=== PATIENT | male | born 1945 | race African-American/Black ===

== ENCOUNTER 2025-04-16 13:08 | Inpatient (IN) | payer BC, OTHER ==
[~2025-04-16] VITALS: Ht 165.1 cm; Wt 63.5 kg
[2025-04-16] MEDS ORDERED: TENOFOVIR PO (13:14)
[2025-04-16] MEDS ORDERED: LIPITOR PO (13:14)
[2025-04-16] MEDS ORDERED: COZAAR (13:14)
[2025-04-16] MEDS ORDERED: ALDACTONE (13:14)
[2025-04-16] MEDS ORDERED: TENORMIN (13:14)
[2025-04-16] MEDS ORDERED: FLOMAX PO (13:14)
[2025-04-16] MEDS ORDERED: ALDACTAZIDE (13:15)
[2025-04-16 13:41] LABS: BASOPHILS # (AUTO) 0.1 K/UL (0.0-0.2); BASOPHILS % (AUTO) 0.7 % (0.0-2.0); EOSINOPHILS # (AUTO) 0.3 K/uL (0.0-0.7); HEMATOCRIT 23.2 % (36.7-47.1); HEMOGLOBIN 7.7 g/dL (12.5-16.3); LYMPHOCYTES # (AUTO) 1.1 K/uL (0.8-4.8); LYMPHOCYTES % (AUTO) 8.5 % (20.5-51.5); MEAN CORPUSCULAR HGB CONC 33 g/dL (32.5-36.3); MONOCYTES # (AUTO) 1.2 K/uL (0.1-1.30); MONOCYTES % (AUTO) 9.5 % (0.0-11.0); NEUTROPHILS # (AUTO) 9.9 K/uL (1.8-8.9); NEUTROPHILS % (AUTO) 79.3 % (38.5-71.5); PLATELET COUNT (AUTO) 125 K/uL (152-348); RED CELL DISTRIBUTION WIDTH 16.9 % (12.1-16.2); WHITE BLOOD COUNT (AUTO) 12.5 K/uL (3.6-10.2)
[2025-04-16] MEDS ORDERED: hydrALAZINE HCL 20 MG/1 ML VIAL IV PRN (13:45)
[2025-04-16] MEDS ORDERED: ONDANSETRON 4 MG/2 ML VIAL IV PRN (13:45)
[2025-04-16] MEDS ORDERED: ACETAMINOPHEN 325 MG TABLET PO PRN (13:45)
[2025-04-16] MEDS ORDERED: MORPHINE SULFATE 2 MG/1 ML DISP.SYRIN IVP PRN (13:45)
[2025-04-16 13:47] LABS: RED BLOOD CELL COUNT(AUTO) 2.18 MIL/uL (4.06-5.63)
[2025-04-16 13:48] LABS: DIFFERENTIAL COMMENT 1
[2025-04-16 13:50] LABS: CALCIUM 9.3 mg/dL (8.5-10.1); CARBON DIOXIDE 21 mmol/L (21-32); CHLORIDE 103 mmol/L (98-107); CREATININE 1.9 mg/dL (0.6-1.3); GLUCOSE 135 mg/dL (74-106); POTASSIUM 5.1 mmol/L (3.5-5.1); SODIUM SERUM 132 mmol/L (136-145)
[2025-04-16] MEDS: IV NORMAL SALINE 1000 ML BAG IV ONE ×2 (13:54→15:15)
[2025-04-16 13:55] LABS: UREA NITROGEN, BLOOD 81 mg/dL (7-18)
[2025-04-16 13:56] LABS: ALANINE AMINOTRANSFERASE 99 U/L (16-63); ALKALINE PHOSPHATASE 456 U/L (50-136); ASPARTATE AMINOTRANSFERASE 208 U/L (15-37); BILIRUBIN,DIRECT 3.6 mg/dL (0.0-0.2); BILIRUBIN,TOTAL 4.2 mg/dL (0.2-1.0); TOTAL PROTEIN, SERUM 5.2 g/dL (6.4-8.2)
[2025-04-16 14:16] LABS: ALBUMIN 1.2 g/dL (3.4-5.0)
[2025-04-16] MEDS ORDERED: MIDODRINE HCL 5 MG TABLET ONE (14:24)
[2025-04-16] MEDS: MIDODRINE HCL 5 MG TABLET PO SCH ×2 (14:29→18:57)
[2025-04-16 14:41] LABS: *BLOOD, URINE NEGATIVE (NEGATIVE); *CLARITY,URINE CLEAR (CLEAR); *COLOR,URINE YELLOW (YELLOW); *KETONES,URINE NEGATIVE (NEGATIVE); *PROTEIN,URINE NEGATIVE (NEGATIVE); *UROBILINOGEN,URINE 0.2 E.U./dl (NORMAL); LEUKOCYTE ESTERASE ,URINE NEGATIVE (NEGATIVE); NITRITE, URINE NEGATIVE (NEGATIVE); UGLUCOSE NEGATIVE (NEGATIVE)
[2025-04-16] MEDS ORDERED: PIPERACILLIN/TAZOBACTAM/D5W 50 ML IV ONE (14:54)
[2025-04-16 14:56] LABS: *BILIRUBIN,URIN 1+ (NEGATIVE)
[2025-04-16] MEDS: PIPERACILLIN SODIUM/TAZOBACTAM 3.375 G in IV DEXTROSE 5% 50 ML IV ONE (15:01)
[2025-04-16 15:05] LABS: LACTIC ACID 2.8 mmol/L (0.4-2.0)
[2025-04-16 15:14] LABS: SQUAMOUS EPITHELIAL CELL,UR FEW /HPF (NONE SEEN); WBC,URINE 0-3 /HPF (0-3)
[2025-04-16 17:25] VITALS: O2SAT 95
[2025-04-16] MEDS ORDERED: ASPI81TA31 PO (17:33)
[2025-04-16] MEDS ORDERED: CHOL10005 PO (17:34)
[2025-04-16] MEDS ORDERED: ASCO500C18 PO (17:34)
[2025-04-16] MEDS ORDERED: TENO300T5 PO (17:35)
[2025-04-16] MEDS ORDERED: MAGIC MOUTHWASH PO (17:36)
[2025-04-16] MEDS ORDERED: VALA100026 PO (17:37)
[2025-04-16] MEDS ORDERED: TRIA5PAS10 TOP (17:38)
[2025-04-16] MEDS ORDERED: AMOX1TAB16 PO (17:39)
[2025-04-16] MEDS ORDERED: TAMS-3 PO (17:40)
[2025-04-16] MEDS ORDERED: ALBU8.5H8 PO (17:40)
[2025-04-16] MEDS ORDERED: ATOR40TA PO (17:41)
[2025-04-16] MEDS ORDERED: ALBUMIN HUMAN 25% 100 ML IV SCH (18:00)
[2025-04-16] MEDS ORDERED: TRIAMCINOLONE ACET 0.1% ORABAS 5 GM TUBE DT PRN ×2 (18:15→18:30)
[2025-04-16] MEDS ORDERED: HOME MED MISCELLANEOUS PO PRN (18:15)
[2025-04-16 18:26] VITALS: BP 101/39; TEMP 97.8; O2SAT 95
[2025-04-16] MEDS ORDERED: VALACYCLOVIR HCL 500 MG TABLET PO SCH (18:30)
[2025-04-16 18:57] VITALS: BP 101/39
[2025-04-16] MEDS ORDERED: ALBUTEROL SULFATE 2.5 MG/3 ML NEBU NEB PRN (20:00)
[2025-04-16] MEDS: TAMSULOSIN HCL 0.4 MG CAP.SR.24H PO SCH (21:05)
[2025-04-16] MEDS: ATORVASTATIN 40 MG TABLET PO SCH (21:05)
[2025-04-16] MEDS ORDERED: VANCOMYCIN IV 200 ML ONE (21:34)
[2025-04-16] MEDS ORDERED: ALBUMIN HUMAN 25% 100 ML ONE ×2 (21:35→22:08)
[2025-04-16] MEDS: ALBUMIN HUMAN 25% 100 ML IV SCH (21:53)
[2025-04-16] MEDS ORDERED: MEROPENEM 1 G in IV NORMAL SALINE 100 ML IV SCH (22:00)
[2025-04-16] MEDS ORDERED: CEFEPIME HCL 1 G VIAL ONE (22:06)
[2025-04-16] MEDS: CEFEPIME HCL 1 G in IV DEXTROSE 5% 50 ML IV ONE (23:27)
[2025-04-17] MEDS ORDERED: MEROPENEM 1GM/NS 100ML IVPB **ER PYXIS ONLY IV ONE (00:05)
[2025-04-17] MEDS: MEROPENEM 1 G in IV NORMAL SALINE 100 ML IV ONE (00:30)
[2025-04-17] MEDS: VANCOMYCIN IV 1,000 MG in IV NORMAL SALINE 250 ML IV ONE (01:07)
[2025-04-17 04:47] LABS: ABG BASE EXCESS -7.5 mmol/L (-2.0-3.0); ABG PCO2 29.3 mmHg (35.0-48.0); ABG PH 7.381 (7.350-7.450); ABG PO2 94.1 mmHg (83.0-108.0); ABG SITE LEFT BRACHIAL; ABG TOTAL HEMOGLOBIN 5.6 G/dL (13.5-17.5); AaDO2 97.2 mmHg; COHb 0.1 % (0.5-1.5); MetHb 0.8 % (0.0-1.5); O2Hb 95.3 % (94.0-98.0)
[2025-04-17] MEDS ORDERED: CEFEPIME HCL 1 G in IV DEXTROSE 5% 50 ML IV SCH (06:00)
[2025-04-17] MEDS ORDERED: NOREPINEPHRINE 8MG/NS 250ML 250 ML IV PRN (07:00)
[2025-04-17] MEDS ORDERED: NOREPINEPHRINE 8MG/NS 250ML 250 ML IV ONE (07:03)
[2025-04-17] MEDS ORDERED: ATROPINE SULFATE 1 MG/10 ML DISP.SYRIN ONE (07:10)
[2025-04-17] MEDS ORDERED: ASPIRIN 81 MG TAB.CHEW PO SCH (09:00)
[2025-04-17] MEDS ORDERED: CHOLECALCIFEROL 1,000 UNIT TABLET PO SCH (09:00)
[2025-04-17] MEDS ORDERED: VALACYCLOVIR HCL 500 MG TABLET PO SCH (09:00)
[2025-04-17] MEDS ORDERED: TENOFOVIR DISOPROXIL FUMARATE 300 MG TABLET PO SCH (09:00)
[2025-04-17] MEDS ORDERED: ASCORBIC ACID 500 MG TABLET PO SCH (09:00)
== END 2025-04-17 10:30 | DRG 871 ==
LOC: ER 13:08 → TELE3 16:45 → CCU 04-17 06:45
PROVIDERS: ADMIT Internal Medicine; ATTEND Internal Medicine
PROC: 5A12012 Performance of Cardiac Output, Single, Manual (ICD-10-PCS; principal; 2025-04-17)
PROC: 0BH17EZ Insertion of Endotracheal Airway into Trachea, Via Natural or Artificial Opening (ICD-10-PCS; 2025-04-17)
DX: A41.9 Sepsis, unspecified organism (principal); I21.A1 Myocardial infarction type 2; J18.9 Pneumonia, unspecified organism; K92.2 Gastrointestinal hemorrhage, unspecified; C22.9 Malignant neoplasm of liver, not specified as primary or secondary; B19.10 Unspecified viral hepatitis B without hepatic coma; N17.9 Acute kidney failure, unspecified; J98.11 Atelectasis; J91.8 Pleural effusion in other conditions classified elsewhere; R18.8 Other ascites; D62 Acute posthemorrhagic anemia; E87.20 Acidosis, unspecified; R65.20 Severe sepsis without septic shock; R57.1 Hypovolemic shock; I13.10 Hypertensive heart and chronic kidney disease without heart failure, with stage 1 through stage 4 chronic kidney disease, or unspecified chronic kidney disease; N18.9 Chronic kidney disease, unspecified; E88.09 Other disorders of plasma-protein metabolism, not elsewhere classified; R62.7 Adult failure to thrive; Z68.23 Body mass index [BMI] 23.0-23.9, adult; Z66 Do not resuscitate; Z86.73 Personal history of transient ischemic attack (TIA), and cerebral infarction without residual deficits; Z79.899 Other long term (current) drug therapy; D69.6 Thrombocytopenia, unspecified
CPT/HCPCS: 36415; 36600; 71045; 71250; 76700; 83605; 83690; 84484; 85025; 86850; 86900; 86901; 87040; G0378; J0461; J0692; J2185; J2543; J3370; J7040; P9047